=== PATIENT | female | born 1945 | race Caucasian/White ===

== ENCOUNTER 2017-11-23 08:19 | Emergency (ER) | payer OTHER ==
[~2017-11-23] VITALS: Ht 147.3 cm; Wt 40.8 kg
[2017-11-23] MEDS ORDERED: LEVO-T50 MCG (08:38)
[2017-11-23] MEDS ORDERED: ATACAND16 MG (08:38)
== END 2017-11-23 16:29 | disposition home or self-care (01) ==
LOC: ER 08:19
DX: R42 Dizziness and giddiness (principal); M54.2 Cervicalgia

== ENCOUNTER 2017-12-23 10:29 | Outpatient (CLI) | payer OTHER ==
[~2017-12-23 10:29] MED LIST: ATACAND16 MG; LEVO-T50 MCG
== END 2017-12-23 14:42 | disposition home or self-care (01) ==
LOC: RAD 501 10:29
DX: M54.2 Cervicalgia (principal)

== ENCOUNTER 2018-04-27 11:58 | Outpatient (CLI) | payer OTHER ==
[~2018-04-27] VITALS: Ht 147.3 cm; Wt 40.8 kg
== END 2018-04-27 17:00 | disposition home or self-care (01) ==
LOC: OFIC 805 11:58
DX: R42 Dizziness and giddiness (principal); H91.8X3 Other specified hearing loss, bilateral

== ENCOUNTER 2023-04-03 10:09 | Outpatient (CLI) | payer OTHER | END 2023-04-03 10:11 | disposition home or self-care (01) | LOC: RAD 10:09 | PROVIDERS: ATTEND Physical Medicine & Rehabilitation | DX: M54.2 Cervicalgia (principal) ==

== ENCOUNTER 2025-05-19 08:49 | Outpatient (CLI) | payer OTHER | END 2025-05-19 08:55 | disposition home or self-care (01) | LOC: RAD 08:49 | PROVIDERS: ATTEND Family Medicine | DX: R05.2 Subacute cough (principal); J11.89 Influenza due to unidentified influenza virus with other manifestations ==